=== PATIENT | female | born 1990 | race Asian ===

== ENCOUNTER 2024-10-18 02:16 | Inpatient (IN) ==
[2024-10-18 03:07] LABS: ABS Eosinophils 0.1 10^3/uL (0.0-0.5); ABS Monocytes 0.6 10^3/uL (0.0-0.9); ABS Neutrophils 4.8 10^3/uL (1.5-7.6); ABS Nucleated RBC 0.01 10^3/ul; Eosinophil % 1.5 %; Hematocrit 39.2 % (35-45); Hemoglobin 13.1 g/dL (11.5-14.3); Lymphocyte % 34.4 %; Mean Corpuscular Hemoglobin 25.8 pg (27-33); Mean Corpuscular Hgb Conc 33.3 g/dL (31-36); Mean Corpuscular Volume 77.3 fL (80-97); Mean Platelet Volume 6.8 fL (7.5-11.2); Nucleated Red Blood Cells % 0.1 %/100WBC (0.0-0.8); Platelet Count 410 10^3/uL (150-450); Red Blood Count 5.07 10^6/uL (3.63-4.92); Red Cell Distribution Width 14.7 % (12-17); White Blood Count 8.6 10^3/uL (3.8-11.8)
[2024-10-18 03:13] LABS: Urine Appearance Turbid; Urine Bilirubin Negative (Negative); Urine Blood 1+ (Negative); Urine Color Yellow; Urine Glucose Negative (Negative); Urine Ketones Negative (Negative); Urine Nitrite Negative (Negative); Urine Protein Trace (Negative); Urine Specific Gravity 1.029 (1.002-1.030); Urine Urobilinogen Negative (Negative)
[2024-10-18 03:43] LABS: Urine Benzodiazepine Screen None Detected (None Detect); Urine Cannabinoids Screen None Detected (None Detect); Urine Opiates Screen None Detected (None Detect)
[2024-10-18 03:55] LABS: ALT 50 U/L (7-52); AST 27 U/L (13-39); Acetaminophen < 15 mcg/mL; Albumin 4.2 g/dL (3.2-5.2); Albumin/Globulin Ratio 1.4 (1-3); Alcohol, S < 13 mg/dL (<13); Alkaline Phosphatase 58 U/L (35-149); Anion Gap 8 mmol/L (2-16); Blood Urea Nitrogen 12 mg/dL (6-24); CO2 Carbon Dioxide 25 mmol/L (22-32); Calcium 9.2 mg/dL (8.6-10.3); Chloride 103 mmol/L (101-111); Creatinine, Serum 0.78 mg/dL (0.51-0.95); Glucose 107 mg/dL (70-100); Potassium 3.8 mmol/L (3.5-5.0); Salicylate < 2.50 mg/dL (<30); Sodium 136 mmol/L (135-145); Total Bilirubin 0.5 mg/dL (0.2-1.0); Total Protein 7.2 g/dL (6.4-8.9); eGFR CKD-EPI 104.1 (>60)
[2024-10-18 04:00] LABS: HCG Pregnancy < 0.60 mIU/mL
[2024-10-18 04:06] LABS: TSH Ultra Thyroid Stim Horm 3.72 mcIU/mL (0.34-5.60)
[2024-10-18 04:20] LABS: Urine Bacteria Absent /HPF (Absent); Urine Red Blood Cell Trace(0-2/hpf) /HPF (0-Trace); Urine Squamous Epithelial Cell Present /HPF (Absent); Urine White Blood Cell 1+(6-10/hpf) /HPF (0-Trace)
[2024-10-18] MEDS ORDERED: Al Hydrox/Mg Hydrox/Simet LIQ 30 ML UDC PO PRN (05:19)
[2024-10-18] MEDS: Vitamin THERAPEUTIC TAB PO SCH (09:43)
[2024-10-26 11:20] VITALS: BP 102/72
== END 2024-10-27 13:20 | disposition home or self-care (01) | DRG 751 ==
LOC: ED 02:16 → EDHOLD 04:34 → BSU 05:42
PROVIDERS: ADMIT Psychiatry & Neurology Psychiatry; ATTEND Student in an Organized Health Care Education/Training Program